=== PATIENT | male | born 1980 | race Caucasian/White ===

== ENCOUNTER 2016-10-14 14:59 | Emergency (ER) | payer OTHER ==
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
[2016-10-14 18:40] VITALS: BP 137/84
--- NOTE | 2016-10-15 00:08 | EKG REPORT ---
SEVERITY:- NORMAL ECG - SINUS RHYTHM : Confirmed by: Alejandra Restrepo 15-Oct-2016 00:07:45
== END 2016-10-14 18:41 | disposition home or self-care (01) ==
LOC: ER 14:59
DX: S40.812A Abrasion of left upper arm, initial encounter (principal); R55 Syncope and collapse; J32.2 Chronic ethmoidal sinusitis; J32.0 Chronic maxillary sinusitis; H70.92 Unspecified mastoiditis, left ear; M54.5 Low back pain; V57.5XXA Driver of pick-up truck or van injured in collision with fixed or stationary object in traffic accident, initial encounter; Y92.481 Parking lot as the place of occurrence of the external cause; Z88.0 Allergy status to penicillin; Z87.442 Personal history of urinary calculi; Z86.14 Personal history of Methicillin resistant Staphylococcus aureus infection; Z90.49 Acquired absence of other specified parts of digestive tract
CPT/HCPCS: 70450; 72110; 93005; 93010; 99284

== ENCOUNTER → 2016-12-17 | Outpatient (CLI) | payer OTHER | LOC: RAD 09:18 | PROVIDERS: ATTEND Specialist | DX: R56.9 Unspecified convulsions (principal) | CPT/HCPCS: 70553; A9577 ==

== ENCOUNTER → 2016-12-26 | Outpatient (CLI) | payer OTHER ==
[2016-12-26 11:33] LABS: ABSOLUTE EOSINOPHILS # (AUTO) 0.1 10^3/uL (0.0-0.6); ABSOLUTE MONOCYTES (AUTO) 0.6 10^3/uL (0.1-1.4); ABSOLUTE NEUT (AUTO) 4.2 10^3/uL (1.7-8.2); BASOPHILS % (AUTO) 0.7 % (0-2); EOSINOPHILS % (AUTO) 1.2 % (0-6); HEMATOCRIT 46.3 % (37.9-51.0); HEMOGLOBIN 15.8 g/dL (13.5-17.0); HGB HCT DIFFERENCE 1.1; LYMPHOCYTES % (AUTO) 29.3 % (13-45); MEAN CORPUSCULAR HEMOGLOBIN 29.6 pg (27.0-33.4); MEAN CORPUSCULAR HGB CONC 34.1 g/dL (32.0-36.0); MEAN CORPUSCULAR VOLUME 87 fl (80-97); MONOCYTES % (AUTO) 8.6 % (3-13); RED BLOOD COUNT 5.35 10^6/uL (4.35-5.55); RED CELL DISTRIBUTION WIDTH 13.6 % (11.5-14.0); SEGMENTED NEUTROPHILS % (AUTO) 60.2 % (42-78); WHITE BLOOD COUNT 6.9 10^3/uL (4.0-10.5)
[2016-12-26 11:39] LABS: PROTHROMBIN TIME 13.2 SEC (11.4-15.4)
[2016-12-26 11:40] LABS: PARTIAL THROMBOPLASTIN TIME 33.9 SEC (23.5-35.8)
[2016-12-27 09:59] LABS: APPEARANCE,URINE SLIGHTLY-CLOUDY; BILIRUBIN,URINE NEGATIVE (NEGATIVE); GLUCOSE, URINE NEGATIVE (NEGATIVE); KETONES,URINE NEGATIVE (NEGATIVE); LEUKOCYTE ESTERASE,URINE NEGATIVE (NEGATIVE); NITRITE,URINE NEGATIVE (NEGATIVE); PROTEIN,URINE NEGATIVE (NEGATIVE); URINE SPECIFIC GRAVITY 1.024; UROBILINOGEN,URINE NEGATIVE mg/dL (<2.0)
== END ==
LOC: OD 10:51
PROVIDERS: ATTEND Pain Medicine Interventional Pain Medicine
DX: Z79.1 Long term (current) use of non-steroidal anti-inflammatories (NSAID) (principal)
CPT/HCPCS: 36415; 81001; 85025; 85610; 85730

== ENCOUNTER 2017-01-23 00:25 | Emergency (ER) | payer OTHER ==
[2017-01-23] MEDS ORDERED: ASPIRIN 81 MG TABLET, CHEWABLE PO ONE (01:53)
[2017-01-23 04:07] LABS: ABSOLUTE BASOPHILS # (AUTO) 0.1 10^3/uL (0.0-0.2); ABSOLUTE EOSINOPHILS # (AUTO) 0.2 10^3/uL (0.0-0.6); ABSOLUTE MONOCYTES (AUTO) 0.6 10^3/uL (0.1-1.4); ABSOLUTE NEUT (AUTO) 3.6 10^3/uL (1.7-8.2); EOSINOPHILS % (AUTO) 2.4 % (0-6); HEMATOCRIT 46.3 % (37.9-51.0); HEMOGLOBIN 16.1 g/dL (13.5-17.0); LYMPHOCYTES % (AUTO) 39.9 % (13-45); MEAN CORPUSCULAR HGB CONC 34.7 g/dL (32.0-36.0); MEAN CORPUSCULAR VOLUME 87 fl (80-97); MONOCYTES % (AUTO) 8.5 % (3-13); RED BLOOD COUNT 5.36 10^6/uL (4.35-5.55); RED CELL DISTRIBUTION WIDTH 13.4 % (11.5-14.0); SEGMENTED NEUTROPHILS % (AUTO) 48.2 % (42-78); WHITE BLOOD COUNT 7.5 10^3/uL (4.0-10.5)
[2017-01-23 04:26] LABS: ALANINE AMINOTRANSFERASE 140 U/L (21-72); ALBUMIN 5.1 g/dL (3.5-5.0); ALKALINE PHOSPHATASE 50 U/L (38-126); ANION GAP 13 (5-19); ASPARTATE AMINO TRANSFERASE 93 U/L (17-59); BILIRUBIN,DIRECT 0.5 mg/dL (0.0-0.4); BILIRUBIN,TOTAL 1.2 mg/dL (0.2-1.3); BLOOD UREA NITROGEN 14 mg/dL (7-20); CALCIUM 10.7 mg/dL (8.4-10.2); CARBON DIOXIDE 30 mmol/L (22-30); CHLORIDE 96 mmol/L (98-107); CREATINE KINASE 518 U/L (55-170); CREATININE RESULT 0.76 mg/dL (0.52-1.25); GLUCOSE 105 mg/dL (75-110); POTASSIUM 4.7 mmol/L (3.6-5.0); SODIUM 139.3 mmol/L (137-145); TOTAL PROTEIN 8.5 g/dL (6.3-8.2)
[2017-01-23 04:40] LABS: TROPONIN I < 0.012 ng/mL
[2017-01-23] MEDS: LORAZEPAM 1 MG TABLET PO PRN ×3 (06:32→09:01)
--- NOTE | 2017-01-23 06:32 | ER Document Report ---
ED General - General Chief Complaint: Palpitations Stated Complaint: NAUSEA AND POSSIBLE PALPATATIONS Time Seen by Provider: 01/23/17 05:54 Mode of Arrival: Ambulatory Information source: Patient Notes: This is a 36-year-old man with a history of palpitations, symptomatic PVCs, anxiety, migraines, hyperhidrosis, elevated LFTs in the past. The patient presented to the emergency room with palpitations, nausea, anxiety. He states that the symptoms started at 6 PM yesterday and lasted for about 3 hours and recurred at approximately 11:30 PM. Patient denies any caffeine, chocolate, wine, alcohol, cheese. He states that he is been run down lately and not had good sleep for the past 3 days. He denies any fever, chills, nausea vomiting. TRAVEL OUTSIDE OF THE [place] IN LAST 30 DAYS: No - HPI Onset: Yesterday Onset/Duration: Gradual Quality of pain: No pain Severity: None Pain Level: Denies Associated symptoms: denies: Chest pain, Fever, Shortness of breath Exacerbated by: Denies Relieved by: Denies Similar symptoms previously: Yes Recently seen / treated by doctor: Yes - Related Data Allergies/Adverse Reactions: Penicillins Allergy (Verified 01/23/17 07:30) Past Medical History - General Information source: Patient - Social History Smoking Status: Current Every Day Smoker Cigarette use (# per day): Yes - 1 pack per day smoking Chew tobacco use (# tins/day): No Frequency of alcohol use: None Drug Abuse: None Lives with: Family Family History: Arthritis, DM, Hyperlipidemia, Hypertension, Malignancy Patient has suicidal ideation: No Patient has homicidal ideation: No - Past Medical History Cardiac Medical History: Reports: Other - Palpitations Pulmonary Medical History: Reports: None EENT Medical History: Reports: None Neurological Medical History: Reports: Hx Migraine Renal/ Medical History: Reports: Hx Kidney Stones GI Medical History: Reports: Hx Endoscopy Musculoskeltal Medical History: Reports Hx Musculoskeletal Deformity, Reports Hx Musculoskeletal Trauma Skin Medical History: Reports Hx MRSA Psychiatric Medical History: Reports: Hx Anxiety - panic attack, Hx Post Traumatic Stress Disorder Traumatic Medical History: Reports: Hx Fractures, Hx Traumatic Brain Injury Infectious Medical History: Reports: Hx MRSA Past Surgical History: Reports: Hx Adenoidectomy, Hx Cholecystectomy, Hx Orthopedic Surgery - spinal x 5, R elbow x 7, Hx Tonsillectomy - Immunizations Immunizations up to date: Yes Hx Diphtheria, Pertussis, Tetanus Vaccination: Yes - 2014 Review of Systems - Review of Systems Constitutional: denies: Chills, Fever EENT: No symptoms reported Cardiovascular: See HPI Respiratory: No symptoms reported Gastrointestinal: No symptoms reported Genitourinary: No symptoms reported Male Genitourinary: No symptoms reported Musculoskeletal: See HPI Skin: No symptoms reported Hematologic/Lymphatic: No symptoms reported Neurological/Psychological: No symptoms reported Physical Exam - Vital signs Vitals: Temp Pulse Resp BP Pulse Ox 98.1 F 87 15 137/99 H 98 01/23/17 01:49 01/23/17 01:49 01/23/17 01:49 01/23/17 01:49 01/23/17 01:49 Notes: Physical exam: GENERAL: HEAD: Atraumatic, normocephalic. EYES: Pupils equal round and reactive to light, extraocular movements intact, sclera anicteric, conjunctiva are normal. ENT: TMs normal, nares patent, oropharynx clear without exudates. Moist mucous membranes. NECK: Normal range of motion, supple without lymphadenopathy or JVD. LUNGS: Breath sounds clear to auscultation bilaterally and equal. No wheezes rales or rhonchi. HEART: Regular rate and rhythm without murmurs, rubs or gallops. ABDOMEN: Soft, normoactive bowel sounds. No tenderness to palpation. No guarding, no rebound. No masses appreciated. EXTREMITIES: Normal range of motion, no pitting or edema. No clubbing or cyanosis. NEUROLOGICAL: Cranial nerves II through XII grossly intact. Normal speech, normal gait. PSYCH: Normal mood, normal affect. SKIN: Warm, Dry, normal turgor, no rashes or lesions noted. Course - Re-evaluation Re-evalutation: 01/23/17 10:26 Patient was observed for several hours in the ER on the monitor. He is having symptomatic PVCs but there have been no runs of V. tach or any other dysrhythmias. His electrolytes and thyroid functions are normal. He is not a caffeine drinker and he does not smoke. He has had Holter monitor workup in the past. He did symptomatically get better with Ativan. I will refer him back to his primary care doctor. - Vital Signs Vital signs: Temp Pulse Resp BP Pulse Ox 98.5 F 87 10 L 119/63 96 01/23/17 10:01 01/23/17 01:49 01/23/17 10:01 01/23/17 10:01 01/23/17 10:01 - Laboratory Result Diagrams: 01/23/17 03:55 01/23/17 03:55 Laboratory results interpreted by me: 01/23/17 01/23/17 03:55 03:55 Chloride 96 L Calcium 10.7 H Direct Bilirubin 0.5 H AST 93 H ALT 140 H Creatine Kinase 518 H CK-MB (CK-2) 10.60 H Total Protein 8.5 H Albumin 5.1 H - Diagnostic Test Radiology reviewed: Image reviewed, Reports reviewed - Chest x-ray shows no infiltrates or effusions - EKG Interpretation by Me Rate: Normal Rhythm: NSR - EKG shows normal sinus rhythm with a ventricular rate of 57, no acute ST-T wave changes. Discharge - Discharge Clinical Impression: palpitations, anxiety Condition: Stable Disposition: HOME, SELF-CARE Instructions: Benzodiazepines ([facility]), Palpitations (Irregular or Rapid Heartrate ) ([facility]) Additional Instructions: Recommendations: Get some rest, drink plenty of fluids. Follow-up with your doctors as planned. Continue current medicines. Return to the emergency room for any further problems. Prescriptions: Lorazepam [Ativan 1 mg Tablet] 1 tab PO TID #20 tablet
[2017-01-23 07:26] LABS: THYROID STIMULATING HORMONE 2.47 uIU/mL (0.47-4.68)
[2017-01-23 10:20] VITALS: BP 119/63
--- NOTE | 2017-01-23 13:53 | EKG REPORT ---
SEVERITY:- NORMAL ECG - SINUS RHYTHM : Confirmed by: Alejandra Restrepo 23-Jan-2017 13:52:55
--- NOTE | 2017-01-23 13:53 | EKG REPORT ---
SEVERITY:- ABNORMAL ECG - SINUS RHYTHM MULTIPLE VENTRICULAR PREMATURE COMPLEXES : Confirmed by: Alejandra Restrepo 23-Jan-2017 13:53:05
== END 2017-01-23 10:46 | disposition home or self-care (01) ==
LOC: ER 00:25
DX: R00.2 Palpitations (principal); F41.9 Anxiety disorder, unspecified; R11.0 Nausea; F17.210 Nicotine dependence, cigarettes, uncomplicated; Z86.14 Personal history of Methicillin resistant Staphylococcus aureus infection; Z90.49 Acquired absence of other specified parts of digestive tract; Z87.442 Personal history of urinary calculi; Z88.0 Allergy status to penicillin
CPT/HCPCS: 36415; 71010; 80053; 82550; 82553; 83735; 84439; 84443; 84484; 85025; 93005; 93010; 99285

== ENCOUNTER 2017-01-28 06:08 | Day surgery (SDC) | payer OTHER ==
[~2017-01-28 06:08] MED LIST: CLINDAMYCIN 600 MG/D5W RTU 600 MG/50 ML RTUPB IV PRN
[2017-01-28 06:35] LABS: PROTHROMBIN TIME 12.5 SEC (11.4-15.4)
[2017-01-28] MEDS ORDERED: LIDOCAINE 1% INJ-PF (10 MG/ML) 30 ML SDV ONE ×2 (06:41→08:43)
[2017-01-28] MEDS ORDERED: SODIUM BICARBONATE 8.4% INJ 50 MEQ/50 ML DISP.SYRIN ONE (06:41)
[2017-01-28] MEDS ORDERED: BUPIVACAINE HCL 0.25% /EPINEPHRINE INJ/PF 30 ML SDV ONE ×2 (06:42→08:39)
[2017-01-28] MEDS ORDERED: MIDAZOLAM 2 MG/2 ML INJ ONE (07:19)
[2017-01-28] MEDS ORDERED: KETAMINE HCL INJ 500 MG/10 ML VIAL ONE (07:19)
[2017-01-28] MEDS ORDERED: PROPOFOL INJ 200 MG/20 ML VIAL IV ONE (07:19)
[2017-01-28] MEDS ORDERED: DEXMEDETOMIDINE INJ 80 MCG/20 ML VIAL IV ONE (07:20)
[2017-01-28] MEDS ORDERED: MORPHINE SULFATE 10 MG/ML INJ ONE (07:20)
[2017-01-28] MEDS ORDERED: SCOPOLAMINE HYDROBROMIDE 1.5 MG PATCH.TD72 ONE ×2 (07:47→10:30)
[2017-01-28] MEDS ORDERED: OXYCODONE-ACETAMINOPHEN 5-325 MG TABLET PO PRN ×2 (08:00)
[2017-01-28] MEDS ORDERED: MEPERIDINE HCL/PF INJ 25 MG/1 ML DISP.SYRIN IV PRN (08:00)
[2017-01-28] MEDS ORDERED: PROMETHAZINE HCL INJ 25 MG/1 ML VIAL IV PRN ×2 (08:00)
[2017-01-28] MEDS ORDERED: MORPHINE SULFATE 10 MG/ML INJ IV PRN (08:00)
[2017-01-28] MEDS ORDERED: FENTANYL CITRATE INJ/PF 100 MCG/2 ML AMPUL IV PRN ×3 (08:00)
[2017-01-28] MEDS ORDERED: DIPHENHYDRAMINE HCL 50 MG/ML VIAL IV PRN (08:00)
[2017-01-28] MEDS ORDERED: ACETAMINOPHEN 100 ML IV ONE (09:41)
[2017-01-28] MEDS ORDERED: CLINDAMYCIN 600 MG/D5W RTU 600 MG/50 ML RTUPB IV ONE (10:16)
[2017-01-28] MEDS ORDERED: FENTANYL CITRATE INJ/PF 100 MCG/2 ML AMPUL ONE (10:50)
[2017-01-28] MEDS ORDERED: OXYCODONE HCL IR 5 MG TABLET PO PRN (10:51)
[2017-01-28] MEDS ORDERED: ONDANSETRON HCL INJ/PF 4 MG/2 ML SDV IV PRN (10:52)
--- NOTE | 2017-01-28 10:58 | OPERATIVE REPORT E ---
Operative Report NAME: ANTONIO SUN : 1980 AGE: 36Y DATE OF SURGERY: 01/28/2017 ROOM: PREOPERATIVE DIAGNOSES: 1. Post-laminectomy syndrome. 2. Chronic back and lower extremity pain. POSTOPERATIVE DIAGNOSES: 1. Post-laminectomy syndrome. 2. Chronic back and lower extremity pain. OPERATIVE PROCEDURE: Implantation of spinal cord stimulating leads x2 under fluoroscopic guidance with implantation of pulse generator and complex programming and analysis. SURGEON: SHAWNA CEE M.D. ANESTHESIA: MAC. CHAINSAW MECHANIC: Dr. Fabby Murillo BLOOD LOSS: 10 mL. COMPLICATIONS: None. INDICATIONS: Intractable pain with positive response to trial of spinal cord stimulation on an outpatient basis. PROCEDURE NOTE: After obtaining informed consent and advising the patient of the risks and benefits to include, but not limited to, bleeding, infection, nerve injury, aggravation of pain, failure to obtain pain relief, paralysis, allergic reaction and , he was taken to the operating room and placed comfortably in a prone position. Comfort was assessed visually and verbally. He was prepped with chlorhexidine with appropriate drying time over the desired location. It should be noted the pulse generator site had been determined preoperatively and marked and prepped accordingly. After draping, fluoroscopy was utilized to evaluate the spine and find a suitable entrance site with an intent to enter at the T12-L1 interspace for the lead placement. The skin was then anesthetized in the lumbar region in the midline as well as over the gluteal region on the right for the pulse generator. Sharp and blunt dissection were performed down in both locations. Hemostasis was achieved with electrocautery as necessary. A suitable working zone was created in the midline lumbar region, and the pulse generator pocket was created without difficulty as well. Again, using fluoroscopy and 6-inch, 14-gauge Tuohy needles, beginning on the right side, the entrance at the T12-L1 space was performed with the [id number] to saline technique. No heme or cerebrospinal fluid were noted. It should be noted that the patient was awakened from the sedation anesthesia for this particular part of the procedure. Octrode was then advanced up to the top of T8 on the right with some repositioning. This procedure was then performed on the left as well. Once suitable positioning was obtained and suitable stimulation was obtained in the desired pain locations, the decision was made to complete the implant. The 0-Mersilene pursestrings were placed around each needle followed by more distal anchor stitch. The needles were removed sequentially and the pursestrings were secured followed by placement of the anchors and securing the anchors to secure the leads. The leads were then tunneled to the pulse generator pocket and connected to the generator. Impedance was checked, stimulation was checked, and lead position had not changed. It should be noted that lateral views consistently demonstrated posterior location of the leads. All wounds were copiously irrigated with Betadine-containing irrigation solution and then closed with interrupted vertical inverted mattress sutures using 3-0 Polysorb. The lumbar incision had a second layer of the same followed by hayden. The pulse generator pocket had a single layer followed by hayden. Dermabond cement was then placed over this followed by sterile dressings. The patient was taken to the PACU for further postoperative care and monitoring. He remained neurologically and hemodynamically intact. DICTATING PHYSICIAN: SHAWNA CEE M.D. [id number] PHY#: [id number] ID: [id number] JOB#: [id number] ACCT: [id number] cc:SHAWNA CEE M.D. >
[2017-01-28] MEDS ORDERED: GLYCOPYRROLATE INJ 0.4 MG/2 ML VIAL ONE ×2 (12:52→12:58)
[2017-01-28] MEDS ORDERED: ONDANSETRON HCL INJ/PF 4 MG/2 ML SDV ONE ×2 (12:52→12:58)
[2017-01-28] MEDS ORDERED: LIDOCAINE 2% INJ-PF (20 MG/ML) 10 ML AMPUL ONE (12:52)
[2017-01-28] MEDS ORDERED: DEXAMETHASONE SOD PHOSPHATE INJ 4 MG/1 ML VIAL ONE (12:52)
[2017-01-28] MEDS ORDERED: METOCLOPRAMIDE HCL INJ/PF 10 MG/2 ML SDV ONE (12:58)
[2017-01-28 13:03] VITALS: BP 137/88
== END 2017-01-28 12:50 | disposition home or self-care (01) ==
LOC: OROUT 06:08
PROVIDERS: ATTEND Pain Medicine Interventional Pain Medicine
PROC: 00HU3MZ Insertion of Neurostimulator Lead into Spinal Canal, Percutaneous Approach (ICD-10-PCS; 2017-01-28)
PROC: 0JH70MZ Insertion of Stimulator Generator into Back Subcutaneous Tissue and Fascia, Open Approach (ICD-10-PCS; principal; 2017-01-28 08:00)
DX: M54.16 Radiculopathy, lumbar region (principal); M96.1 Postlaminectomy syndrome, not elsewhere classified; G89.29 Other chronic pain; M54.9 Dorsalgia, unspecified; M19.90 Unspecified osteoarthritis, unspecified site; E66.9 Obesity, unspecified; Z68.33 Body mass index [BMI] 33.0-33.9, adult; Z79.899 Other long term (current) drug therapy
CPT/HCPCS: 36415; 85610; 85730; 72080; 63685; 63650; C1820; C1778; C1787; J2250; J3490 ×6; J1100; J3010; J2765; J2270; J2405; J2704; J0131; 300

== ENCOUNTER 2017-09-01 14:15 | Emergency (ER) | payer OTHER ==
[2017-09-01] MEDS ORDERED: MORPHINE SULFATE 10 MG/ML INJ IV ONE (16:30)
[2017-09-01] MEDS ORDERED: NORMAL SALINE 1000 ML 1,000 ML IV ONE (16:30)
[2017-09-01] MEDS ORDERED: ONDANSETRON HCL INJ/PF 4 MG/2 ML SDV IV ONE (16:30)
--- NOTE | 2017-09-01 16:31 | ER Document Report ---
ED General - General Chief Complaint: Abdominal Pain Stated Complaint: ABDOMINAL PAIN Time Seen by Provider: 09/01/17 16:29 Notes: Patient with a history of cholecystectomy presents with severe right upper quadrant pain and bloody stool. TRAVEL OUTSIDE OF THE [place] IN LAST 30 DAYS: No - Related Data Allergies/Adverse Reactions: Penicillins Allergy (Verified 01/23/17 07:30) Past Medical History - Social History Smoking Status: Former Smoker Frequency of alcohol use: Rare Drug Abuse: None Family History: Arthritis, DM, Hyperlipidemia, Hypertension, Malignancy Patient has suicidal ideation: No Patient has homicidal ideation: No - Past Medical History Cardiac Medical History: Denies: Hx Coronary Artery Disease, Hx Heart Attack, Hx Hypertension Pulmonary Medical History: Reports: Hx Bronchitis - Hx of acute bronchitis Denies: Hx Asthma, Hx COPD, Hx Pneumonia Neurological Medical History: Reports: Hx Migraine. Denies: Hx Cerebrovascular Accident, Hx Seizures Renal/ Medical History: Reports: Hx Kidney Stones. Denies: Hx Peritoneal Dialysis GI Medical History: Reports: Hx Endoscopy Musculoskeltal Medical History: Denies Hx Arthritis, Reports Hx Musculoskeletal Deformity, Reports Hx Musculoskeletal Trauma Skin Medical History: Reports Hx MRSA Psychiatric Medical History: Reports: Hx Anxiety - panic attack, Hx Post Traumatic Stress Disorder Traumatic Medical History: Reports: Hx Fractures, Hx Traumatic Brain Injury Infectious Medical History: Reports: Hx MRSA Past Surgical History: Reports: Hx Adenoidectomy, Hx Cholecystectomy, Hx Orthopedic Surgery - spinal x 5, R elbow x 7, Hx Tonsillectomy - Immunizations Immunizations up to date: Yes Hx Diphtheria, Pertussis, Tetanus Vaccination: Yes - 2014 Physical Exam - Vital signs Vitals: Temp Pulse Resp BP Pulse Ox 98.9 F 109 H 16 143/90 H 97 09/01/17 14:22 09/01/17 14:22 09/01/17 14:22 09/01/17 14:22 09/01/17 14:22 Course - Vital Signs Vital signs: Temp Pulse Resp BP Pulse Ox 98.9 F 109 H 16 143/90 H 97 09/01/17 14:22 09/01/17 14:22 09/01/17 14:22 09/01/17 14:22 09/01/17 14:22
[2017-09-01 17:13] LABS: ABSOLUTE BASOPHILS # (AUTO) 0.1 10^3/uL (0.0-0.2); ABSOLUTE EOSINOPHILS # (AUTO) 0.1 10^3/uL (0.0-0.6); ABSOLUTE LYMPHOCYTES (AUTO) 2.4 10^3/uL (0.5-4.7); ABSOLUTE MONOCYTES (AUTO) 0.7 10^3/uL (0.1-1.4); ABSOLUTE NEUT (AUTO) 4.9 10^3/uL (1.7-8.2); BASOPHILS % (AUTO) 0.8 % (0-2); EOSINOPHILS % (AUTO) 1.1 % (0-6); HEMATOCRIT 45.1 % (37.9-51.0); HEMOGLOBIN 15.7 g/dL (13.5-17.0); LYMPHOCYTES % (AUTO) 29.4 % (13-45); MEAN CORPUSCULAR HEMOGLOBIN 30.8 pg (27.0-33.4); MEAN CORPUSCULAR HGB CONC 34.9 g/dL (32.0-36.0); MEAN CORPUSCULAR VOLUME 88 fl (80-97); MONOCYTES % (AUTO) 8.2 % (3-13); RED BLOOD COUNT 5.11 10^6/uL (4.35-5.55); SEGMENTED NEUTROPHILS % (AUTO) 60.5 % (42-78); WHITE BLOOD COUNT 8.1 10^3/uL (4.0-10.5)
--- NOTE | 2017-09-01 18:03 | RADIOLOGY REPORT (SQ) ---
EXAM DESCRIPTION: CT ABD/PELVIS WITH IV ONLY COMPLETED DATE/TIME: 09/01/2017 5:32 pm REASON FOR STUDY: pain COMPARISON: 02/16/2016 TECHNIQUE: CT scan of the abdomen and pelvis performed using helical scanning technique with dynamic intravenous contrast injection. No oral contrast. Images reviewed with lung, soft tissue, and bone windows. Reconstructed coronal and sagittal MPR images reviewed. Delayed images for evaluation of the urinary system also acquired. All images stored on PACS. All CT scanners at this facility use dose modulation, iterative reconstruction, and/or weight based d osing when appropriate to reduce radiation dose to as low as reasonably achievable (ALARA). [facility]: Dose Right [facility]: CareDose [facility]: Dose Right [facility]: Teradose 4D [facility]: Shwrüm CONTRAST TYPE AND DOSE: contrast/concentration: Isovue 370.00 mg/ml; Total Contrast Delivered: 100.0 ml; Total Saline Delivered: 45.0 ml RENAL FUNCTION: None required. The patient is less than 50 years old. RADIATION DOSE: CT Rad equipment meets quality standard of care and radiation dose reduction techniq ues were employed. CTDIvol: 16.4 - 17.4 mGy. DLP: 1855 mGy-cm.. LIMITATIONS: None. FINDINGS: LOWER CHEST: No significant findings. No nodules or infiltrates. LIVER: Diffuse hepatic steatosis. No masses. No dilated ducts. SPLEEN: Normal size. No focal lesions. PANCREAS: No masses. No significant calcifications. No adjacent inflammation or peripancreatic fluid collections. Pancreatic duct not dilated. GALLBLADDER: Surgically absent. ADRENAL GLANDS: No significant masses or asymmetry. RIGHT KIDNEY AND URETER: No solid masses. No significant calcifications. No hydronephrosis or hyd roureter. LEFT KIDNEY AND URETER: No solid masses. No significant calcifications. No hydronephrosis or hydr oureter. AORTA AND VESSELS: No aneurysm. No dissection. Renal arteries, SMA, celiac without stenosis. RETROPERITONEUM: No retroperitoneal adenopathy, hemorrhage or masses. BOWEL AND PERITONEAL CAVITY: No masses or inflammatory changes. No free fluid or peritoneal masses. APPENDIX: Normal. PELVIS: No mass. No free fluid. Normal bladder. ABDOMINAL WALL: No masses. No hernias. BONES: No significant or acute findings. OTHER: Spinal stimulator in place. IMPRESSION: NO ACUTE FINDINGS WITHIN THE ABDOMEN OR PELVIS. NO SIGNIFICANT CHANGE FROM PRIOR CT. TECHNICAL DOCUMENTATION: JOB ID: [id number] Quality ID # [id number]: Final reports with documentation of one or more dose reduction techniques (e.g., Au tomated exposure control, adjustment of the mA and/or kV according to patient size, use of iterative reconstruction technique) 2010 [employer]- All Rights Reserved
[2017-09-01 18:50] LABS: APPEARANCE,URINE CLEAR; BILIRUBIN,URINE NEGATIVE (NEGATIVE); GLUCOSE, URINE NEGATIVE (NEGATIVE); KETONES,URINE NEGATIVE (NEGATIVE); LEUKOCYTE ESTERASE,URINE NEGATIVE (NEGATIVE); NITRITE,URINE NEGATIVE (NEGATIVE); PROTEIN,URINE NEGATIVE (NEGATIVE); URINE SPECIFIC GRAVITY 1.042; UROBILINOGEN,URINE NEGATIVE mg/dL (<2.0)
[2017-09-01 18:50] LABS: ALANINE AMINOTRANSFERASE 141 U/L (21-72); ALBUMIN 4.6 g/dL (3.5-5.0); ALKALINE PHOSPHATASE 53 U/L (38-126); ANION GAP 14 (5-19); ASPARTATE AMINO TRANSFERASE 94 U/L (17-59); BILIRUBIN,DIRECT 0.1 mg/dL (0.0-0.4); BILIRUBIN,TOTAL 0.5 mg/dL (0.2-1.3); BLOOD UREA NITROGEN 11 mg/dL (7-20); CALCIUM 9.5 mg/dL (8.4-10.2); CARBON DIOXIDE 26 mmol/L (22-30); CHLORIDE 100 mmol/L (98-107); CREATININE RESULT 0.72 mg/dL (0.52-1.25); GLUCOSE 84 mg/dL (75-110); POTASSIUM 4.8 mmol/L (3.6-5.0); SODIUM 140.4 mmol/L (137-145); TOTAL PROTEIN 7.1 g/dL (6.3-8.2)
[2017-09-01] MEDS ORDERED: PROMETHAZINE HCL INJ 25 MG/1 ML VIAL IV ONE (19:28)
[2017-09-01] MEDS ORDERED: FENTANYL CITRATE INJ/PF 100 MCG/2 ML AMPUL IV ONE (19:28)
[2017-09-01] MEDS ORDERED: MAG HYDROX/AL HYDROX/SIMETH SUSP 30 ML UDCUP PO ONE (19:29)
[2017-09-01] MEDS ORDERED: LIDOCAINE 2% VISCOUS SOLN 20 ML UDCUP PO ONE (19:29)
[2017-09-01] MEDS ORDERED: METOCLOPRAMIDE HCL ORAL SOLN 10 MG/10 ML UDCUP PO ONE (19:29)
[2017-09-01] MEDS ORDERED: FAMOTIDINE 20 MG TABLET PO ONE (19:33)
--- NOTE | 2017-09-01 19:35 | ER Document Report ---
ED General - General Chief Complaint: Abdominal Pain Stated Complaint: ABDOMINAL PAIN Time Seen by Provider: 09/01/17 16:29 Notes: Patient is a 37-year-old male with a past surgical history of a cholecystectomy who presents with 4 days of progressively worsening right upper quadrant and epigastric abdominal pain with associated intermittent melanotic stools. Patient reports the pain is a raw, aching feeling in his upper abdomen. He is uncertain if anything worsens the pain and states he has been trying Maalox at home without any improvement. He denies any history of similar symptoms in the past although does report a history of gastroesophageal reflux. He notes that the stools are intermittently dark but he denies any bright red blood per rectum. He has not seen his primary care doctor regarding today's concerns. He denies any lightheadedness or syncope. TRAVEL OUTSIDE OF THE [place] IN LAST 30 DAYS: No - Related Data Allergies/Adverse Reactions: Penicillins Allergy (Verified 01/23/17 07:30) Past Medical History - General Information source: Patient - Social History Smoking Status: Former Smoker Frequency of alcohol use: Rare Drug Abuse: None Lives with: Spouse/Significant other Family History: Arthritis, DM, Hyperlipidemia, Hypertension, Malignancy Patient has suicidal ideation: No Patient has homicidal ideation: No - Past Medical History Cardiac Medical History: Denies: Hx Coronary Artery Disease, Hx Heart Attack, Hx Hypertension Pulmonary Medical History: Reports: Hx Bronchitis - Hx of acute bronchitis Denies: Hx Asthma, Hx COPD, Hx Pneumonia Neurological Medical History: Reports: Hx Migraine. Denies: Hx Cerebrovascular Accident, Hx Seizures Renal/ Medical History: Reports: Hx Kidney Stones. Denies: Hx Peritoneal Dialysis GI Medical History: Reports: Hx Endoscopy Musculoskeltal Medical History: Denies Hx Arthritis, Reports Hx Musculoskeletal Deformity, Reports Hx Musculoskeletal Trauma Skin Medical History: Reports Hx MRSA Psychiatric Medical History: Reports: Hx Anxiety - panic attack, Hx Post Traumatic Stress Disorder Traumatic Medical History: Reports: Hx Fractures, Hx Traumatic Brain Injury Infectious Medical History: Reports: Hx MRSA Past Surgical History: Reports: Hx Adenoidectomy, Hx Cholecystectomy, Hx Orthopedic Surgery - spinal x 5, R elbow x 7, Hx Tonsillectomy - Immunizations Immunizations up to date: Yes Hx Diphtheria, Pertussis, Tetanus Vaccination: Yes - 2014 Review of Systems - Review of Systems Notes: Constitutional: Negative for fever. HENT: Negative for sore throat. Eyes: Negative for visual changes. Cardiovascular: Negative for chest pain. Respiratory: Negative for shortness of breath. Gastrointestinal: Positive for abdominal pain, nausea, and melena Genitourinary: Negative for dysuria. Musculoskeletal: Negative for back pain. Skin: Negative for rash. Neurological: Negative for headaches, weakness or numbness. 10 point ROS negative except as marked above and in HPI. Physical Exam - Vital signs Vitals: Temp Pulse Resp BP Pulse Ox 98.9 F 109 H 16 143/90 H 97 09/01/17 14:22 09/01/17 14:22 09/01/17 14:22 09/01/17 14:22 09/01/17 14:22 Interpretation: Tachycardic Notes: PHYSICAL EXAMINATION: GENERAL: Appears mildly uncomfortable but in no acute distress HEAD: Atraumatic, normocephalic. EYES: Pupils equal round and reactive to light, extraocular movements intact, sclera anicteric, conjunctiva are normal. ENT: nares patent, oropharynx clear without exudates. Moist mucous membranes. NECK: Normal range of motion, supple without lymphadenopathy LUNGS: Breath sounds clear to auscultation bilaterally and equal. No wheezes rales or rhonchi. HEART: Regular rate and rhythm without murmurs ABDOMEN: Soft, pain on palpation of the epigastrium and right upper quadrant pain, normoactive bowel sounds. No guarding, no rebound. No masses appreciated. Rectal: Light brown stool. No bright blood or evidence of melena EXTREMITIES: Normal range of motion, no pitting or edema. No cyanosis. NEUROLOGICAL: No focal neurological deficits. Moves all extremities spontaneously and on command. PSYCH: Normal mood, normal affect. SKIN: Warm, Dry, normal turgor, no rashes or lesions noted. Course - Re-evaluation Re-evalutation: 09/01/17 19:30 Patient presents with epigastric abdominal pain with associated intermittent melena although none on rectal exam today most consistent with likely gastric versus duodenal ulcer. Patient has focal right upper quadrant abdominal tenderness and epigastric abdominal tenderness on examination without rebound or guarding. No otherwise localize tenderness. Patient has a remote history of a cholecystectomy. Lipase is normal. Mild transaminitis that does not appear clinically relevant. CT the abdomen pelvis was obtained in triage for unclear reason and is noted to be unremarkable. Based on history and exam, I do not suspect ACS, pulmonary embolus, SBO, mesenteric ischemia, acute pancreatitis, biliary pathology, or an abdominal aortic dissection. Patient has had improvement of symptoms here with a GI cocktail. Given his report of melanotic stools at home but a normal hemoglobin and absence of any melena here in the emergency department I do not believe the patient requires hospitalization for emergent endoscopy. However explained at length to him that he will require an endoscopy as an outpatient and have referred him to our pulverizer. I will start him on famotidine, Carafate, pain and nausea control as an outpatient. At this time will discharge with return precautions and follow-up recommendations. Verbal discharge instructions given a the bedside and opportunity for questions given. Medication warnings reviewed. Patient is in agreement with this plan and has verbalized understanding of return precautions and the need for primary care follow-up in the next 24-72 hours. - Vital Signs Vital signs: Temp Pulse Resp BP Pulse Ox 98.7 F 86 16 124/87 H 97 09/01/17 19:14 09/01/17 20:51 09/01/17 20:51 09/01/17 20:51 09/01/17 20:51 - Laboratory Result Diagrams: 09/01/17 16:41 09/01/17 18:15 Laboratory results interpreted by me: 09/01/17 09/01/17 18:15 18:15 AST 94 H ALT 141 H Lipase 490.1 H - Diagnostic Test Radiology reviewed: Reports reviewed Discharge - Discharge Clinical Impression: Epigastric abdominal pain, Upper GI bleed Condition: Stable Disposition: HOME, SELF-CARE Additional Instructions: Your symptoms appear to be most consistent with a likely ulcer in your stomach or upper intestine. Please begin taking famotidine 40 mg in the morning and 40 mg at night. This medicine can be purchased directly [id number]. You may also take medicine such as Pepto-Bismol or Tums to assist with your pain. Take Carafate before any oral ingestion that has been prescribed today. You may also take the Odem with which she was sent home for pain unrelieved by the above measures. He may take the Phenergan as needed for nausea and vomiting. For please return to emergency department immediately if you have worsening of your pain, bright red blood in your stool, more frequent melanotic stools, shortness of breath, vomiting, become unable to exert yourself due to pain or difficulty breathing, you pass out, or have any pain that radiates into your arms, jaw, or back. Please also return if you have any additional symptoms that are concerning to you. Prescriptions: Promethazine HCl [Phenergan 25 mg Tablet] 25 mg PO Q6HP PRN #12 tablet PRN Reason: Sucralfate [Carafate 1 gm Tablet] 1 gm PO ACHS #120 tablet Referrals: JESSICA GIVENS DO [Primary Care Provider] - Follow up as needed ZAHRAA MENDOZA MD [ACTIVE STAFF] - Follow up tomorrow
[2017-09-01] MEDS ORDERED: HYDROCODONE/ACETAMINOPHEN 5-325 MG 6 TAB/DSPK PO PRN (19:39)
[2017-09-01 19:43] LABS: ADD ON TESTING BLD IN LAB ACKNOWLEDGE
[2017-09-01 19:56] LABS: LIPASE 490.1 U/L (23-300)
[2017-09-01 20:57] VITALS: BP 124/87
== END 2017-09-01 20:57 | disposition home or self-care (01) ==
LOC: ER 14:15
DX: K92.2 Gastrointestinal hemorrhage, unspecified (principal); R10.13 Epigastric pain; R10.11 Right upper quadrant pain; Z90.49 Acquired absence of other specified parts of digestive tract; Z87.891 Personal history of nicotine dependence
CPT/HCPCS: 99284; 96361; 96374; 96375; 36415; 83690; 85025; 80053; 81001; 74177; J3010; J3490; J2270; J2550; J2405; J7030

== ENCOUNTER 2017-10-21 10:24 | Day surgery (SDC) | payer OTHER ==
[2017-10-15 10:22] LABS: HEMATOCRIT 41.7 % (37.9-51.0); HEMOGLOBIN 14.4 g/dL (13.5-17.0); MEAN CORPUSCULAR HEMOGLOBIN 30.4 pg (27.0-33.4); MEAN CORPUSCULAR HGB CONC 34.7 g/dL (32.0-36.0); MEAN CORPUSCULAR VOLUME 88 fl (80-97); PLATELET COUNT 256 10^3/uL (150-450); RED BLOOD COUNT 4.76 10^6/uL (4.35-5.55); RED CELL DISTRIBUTION WIDTH 13.8 % (11.5-14.0)
[2017-10-15 10:23] LABS: INTERNATIONAL RATION (INR) 0.88; PROTHROMBIN TIME 12.6 SEC (11.4-15.4)
[2017-10-15 10:24] LABS: PARTIAL THROMBOPLASTIN TIME 34.2 SEC (23.5-35.8)
[2017-10-15 10:51] LABS: WHITE BLOOD COUNT 7.5 10^3/uL (4.0-10.5)
--- NOTE | 2017-10-15 13:29 | EKG REPORT ---
SEVERITY:- NORMAL ECG - SINUS RHYTHM : Confirmed by: Johnson Ratliff MD 15-Oct-2017 13:28:43
[~2017-10-21 10:24] MED LIST changes: +LACTATED RINGERS 1000 ML IV PRN; +LIDOCAINE 0.5% INJ-PF (5 MG/ML) 50 ML SDV SUBCUT PRN; +MIDAZOLAM 2 MG/2 ML INJ IV PRN; +SCOPOLAMINE HYDROBROMIDE 1.5 MG PATCH.TD72 TD PRN
[2017-10-21] MEDS ORDERED: MIDAZOLAM 2 MG/2 ML INJ ONE ×2 (11:33→13:12)
[2017-10-21] MEDS ORDERED: FENTANYL CITRATE INJ/PF 100 MCG/2 ML AMPUL ONE ×3 (11:33→14:27)
[2017-10-21] MEDS ORDERED: LIDOCAINE 2% INJ-PF (20 MG/ML) 10 ML AMPUL ONE (11:33)
[2017-10-21] MEDS ORDERED: PROPOFOL INJ 200 MG/20 ML VIAL IV ONE (11:34)
[2017-10-21] MEDS ORDERED: LIDOCAINE 1% INJ-PF (10 MG/ML) 30 ML SDV ONE (12:12)
[2017-10-21] MEDS ORDERED: SODIUM BICARBONATE 8.4% INJ 50 MEQ/50 ML DISP.SYRIN ONE (12:15)
[2017-10-21] MEDS ORDERED: SODIUM BICARBONATE 10 ML IV ONE (12:16)
[2017-10-21] MEDS ORDERED: BUPIVACAINE HCL 0.5%-EPI 1:200000 INJ/PF 30 ML VIAL ONE (12:18)
[2017-10-21] MEDS ORDERED: FENTANYL CITRATE INJ/PF 100 MCG/2 ML AMPUL IV PRN ×3 (13:23)
[2017-10-21] MEDS ORDERED: MEPERIDINE HCL/PF INJ 25 MG/1 ML DISP.SYRIN IV PRN (13:23)
[2017-10-21] MEDS ORDERED: PROMETHAZINE HCL INJ 25 MG/1 ML VIAL IV PRN ×2 (13:23)
[2017-10-21] MEDS ORDERED: MORPHINE SULFATE 10 MG/ML INJ IV PRN (13:23)
[2017-10-21] MEDS ORDERED: ONDANSETRON HCL INJ/PF 4 MG/2 ML SDV IV PRN (13:23)
[2017-10-21] MEDS ORDERED: OXYCODONE-ACETAMINOPHEN 5-325 MG TABLET PO PRN ×3 (13:23→14:12)
[2017-10-21] MEDS ORDERED: DIPHENHYDRAMINE HCL 50 MG/ML VIAL IV PRN (13:23)
[2017-10-21] MEDS ORDERED: CLINDAMYCIN 600 MG/D5W RTU 600 MG/50 ML RTUPB IV ONE (13:56)
[2017-10-21] MEDS ORDERED: ONDANSETRON HCL INJ/PF 4 MG/2 ML SDV ONE (14:00)
--- NOTE | 2017-10-21 14:03 | OPERATIVE REPORT E ---
Operative Report NAME: ANTONIO SUN : 1980 AGE: 37Y DATE OF SURGERY: 10/21/2017 ROOM: PREOPERATIVE DIAGNOSIS: END-OF-LIFE SPINAL CORD STIMULATOR PULSE GENERATOR BATTERY. POSTOPERATIVE DIAGNOSIS: END-OF-LIFE SPINAL CORD STIMULATOR PULSE GENERATOR BATTERY. OPERATION: Spinal cord stimulator pulse generator battery replacement and complex programming. SURGEON: SHAWNA CEE M.D. FINDINGS: Not applicable. COMPLICATIONS: None. BLOOD LOSS: Minimal. ANESTHESIA: MAC. PROCEDURE: After obtaining informed consent and advising the patient of the risks and benefits including serious neurological injury, bleeding and infection, failure of the system to work, damage to electrodes, he was taken to the operating room, placed comfortably in the prone position. He was prepped and draped in the usual fashion with emphasis over the battery location in the right gluteal region. After suitable drying time, the draping occurred. Timeout was performed. Local anesthesia of 1% lidocaine with bicarb was then applied to the surgical site over the previous incision. Bupivacaine 0.25% with epinephrine was then subsequently used as well. Sharp and blunt dissection was performed down to the battery of pulse generator. This was removed without difficulty. The leads were disconnected from the battery and reconnected to the new pulse generator battery. Impedance was checked. All systems were go. The capsule was slightly incised to allow for the increased radius of the new pulse generator battery. Copious irrigation was performed. Hemostasis was inspected and felt to be satisfactory. The wound was then closed with inverted vertical mattress sutures using 3-0 Polysorb followed by running subcuticular 4-0 Polysorb. The skin was then sealed with Dermabond tape and Dermabond cement. When this was dry, Telfa was placed followed by OpSite dressing. The patient was then taken to the PACU for further postoperative care and monitoring. DICTATING PHYSICIAN: SHAWNA CEE M.D. [id number] PHY#: [id number] ID: [id number] JOB#: [id number] ACCT: [id number] cc:SHAWNA CEE M.D. >
[2017-10-21] MEDS ORDERED: PROMETHAZINE HCL INJ 25 MG/1 ML VIAL ONE (14:13)
[2017-10-21 16:03] VITALS: BP 104/57
== END 2017-10-21 15:55 | disposition home or self-care (01) ==
LOC: OROUT 10:24
PROVIDERS: ATTEND Pain Medicine Interventional Pain Medicine
PROC: 00HU3MZ Insertion of Neurostimulator Lead into Spinal Canal, Percutaneous Approach (ICD-10-PCS; principal; 2017-10-21 12:30)
DX: G89.4 Chronic pain syndrome (principal); F17.210 Nicotine dependence, cigarettes, uncomplicated; M54.16 Radiculopathy, lumbar region; M96.1 Postlaminectomy syndrome, not elsewhere classified; F45.42 Pain disorder with related psychological factors; M51.37 Other intervertebral disc degeneration, lumbosacral region; M48.07 Spinal stenosis, lumbosacral region; M51.27 Other intervertebral disc displacement, lumbosacral region; M19.90 Unspecified osteoarthritis, unspecified site; Z79.899 Other long term (current) drug therapy; Z79.891 Long term (current) use of opiate analgesic; Z86.14 Personal history of Methicillin resistant Staphylococcus aureus infection; Z87.820 Personal history of traumatic brain injury
CPT/HCPCS: 63685; C1820; 300; 36415; 85027; 85610; 85730; 93005; 93010; J2250; J2405; J2550; J2704; J3010; J3490